=== PATIENT | female | born 1975 | race Caucasian/White ===

== ENCOUNTER → 2021-03-19 | Outpatient (CLI) | payer OTHER ==
[~2021-03-19] MED LIST: DESV100T PO; DEXT20TA2 PO; ESTR2TAB3 PO; LEVO112T2 PO; OXYC1TAB19 PO; TRAZ-123 PO
--- NOTE | 2021-03-19 12:42 | PDOC1 ---
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 Patient rates her disability rating 0-10 10 being the worst is a 7 with family responsibilities recreation 8 with social activity 9 with occupation 5 with sexual behavior 9 with life support activities and 0 with self-care activities patient is been taking oxycodone which is helpful but is beginning to not last as long as previously patient has had no other specific treatments for the abdominal pain at this time other than gastroenterology work-up and is pending a colonoscopy at time of this dictation. Patient had multiple CT scans films of the abdomen pelvis and we reviewed those with her today as well showing normal CT examinations of the abdomen pelvis except for surgical changes as noted. PAST MEDICAL HISTORY: PMH: Hyperglycemia, pancreatitis, hypotension, depression PREVIOUS SURGERIES: Past Surgical Hx: Hysterectomy, gastric bypass, gastrectomy, cholecystectomy, appendectomy, ventral hernia repair x13 with scar tissue excision CURRENT MEDICATIONS: Current Meds: Active Scripts Medications Dose Route/Sig Max Daily Dose Days Date Category Trazodone Hcl 100 Mg Tablet 100 Mg PO HS 03/19/21 Reported Estradiol 2 Mg Tablet 1 Tab PO DAILY 03/19/21 Reported Percocet 7.5-325 Mg Tablet (Oxycodone/Acetaminophen) 1 Each Tablet 1 Tab PO QIDPRN PRN MDD 4 Tablet(s) 5 03/19/21 Reported Pristiq Er (Desvenlafaxine Succinate) 100 Mg Tab.er.24h 1 Tab PO DAILY 03/19/21 Reported Synthroid (Levothyroxine Sodium) 112 Mcg Tablet 1 Tab PO DAILY 03/19/21 Reported Adderall 20 Mg Tablet (Dextroamphetamine/Amphetamine) 20 Mg Tablet 1 Tab PO BID MDD 2 Tablet(s) 5 03/19/21 Reported ALLERGIES; Allergies: Coded Allergies: pregabalin (Verified Allergy, Intermediate, Swelling, 03/19/21) FAMILY HISTORY: Family Hx: Diabetes, multiple cancers SOCIAL HISTORY: Social Hx: Patient drinks alcohol very rarely does not smoke says any illegal illicit or recreational drugs is lives with her spouse lives locally in [facility], patient is currently on disability secondary to her pain situation. REVIEW OF SYSTEMS: ROS: Positive for those items mentioned in history of present illness, all systems are reviewed, otherwise negative ,and are complete full and well-documented on patient's chart. PHYSICAL EXAM: VS: Blood pressure is 135/93 pulse 90 respirations 18 temperature 98.6 F height 5 feet 4 inches weight 131 pounds PE: PHYSICAL EXAMINATION: GENERAL: The patient is awake, alert, oriented, appropriate, very pleasant in demeanor HEENT: Shows normocephalic, atraumatic. Extraocular movements are intact and symmetrical. Oral cavity: Mucous membranes moist and pink. Dentition is intact. NECK: Shows anterior throat supple without palpable lymphadenopathy noted. Swallow reflex symmetrical. CHEST: Shows normal on inspection. Breath sounds are clear bilaterally but distant but no rales or rhonchi. HEART: Shows S1, S2 clear. No murmurs auscultated. ABDOMEN: Soft, nontender, nondistended. No palpable organomegaly is noted. No rebound or guarding demonstrated. Well-healed midline surgical scars noted. Palpation shows some significant tenderness in the left upper quadrant but without palpable masses without radiation also some mild tenderness with palpation in the right upper quadrant and also in the middle epigastric distribution of the superior abdominal wall as well. BACK: Shows spine grossly in the midline. Normal-appearing cervical lordotic curvature, and thoracic kyphosis. SKIN: Shows warm and dry, good turgor. No edema. No sores, rashes or bruising throughout. IMPRESSION: Impression: 45-year-old female with long history bilateral upper abdominal pain status post multiple abdominal wall surgeries. CT scan abdomen pelvis as noted Plan: Options were discussed with the patient including conservative therapies as well as interventional techniques that she would like to pursue eventual techniques. We discussed bilateral TAP block, using description as well as anatomical models to describe the procedure. Patient is interested would like to proceed. We will wait for preauthorization with patient's insurance provider once obtained we will have patient return for bilateral TAP blocks, bilateral upper quadrants. PRAMOD LOZANO MD Mar 19, 2021 12:42
== END | disposition home or self-care (01) ==
LOC: PNCL 11:33
PROVIDERS: ATTEND Anesthesiology
DX: R10.9 Unspecified abdominal pain (principal); R73.9 Hyperglycemia, unspecified; F32.9 Major depressive disorder, single episode, unspecified; Z79.899 Other long term (current) drug therapy; Z88.8 Allergy status to other drugs, medicaments and biological substances; Z90.710 Acquired absence of both cervix and uterus; Z90.49 Acquired absence of other specified parts of digestive tract; Z98.890 Other specified postprocedural states
CPT/HCPCS: G0463

== ENCOUNTER → 2021-04-02 | Outpatient (CLI) | payer OTHER ==
[~2021-04-02] MED LIST changes: +BUPIVACAINE MPF 0.25% 10 ML VIAL. ONE; +methylPREDNISolone ACETATE 80 MG/ML VIAL. ONE
--- NOTE | 2021-04-02 08:58 | PDOC ---
Progress Note - Pain Clinic Date of Service: DOS: DATE: 04/02/21 TIME: 08:53 Diagnosis: Dx: Chronic postoperative pain abdominal wall Abdominal pain epigastric History or Present Illness: HPI: 45-year-old female with history of surgical intervention abdominal wall pain f rom scarring and multiple abdominal procedures with pain bilateral upper abdominal epigastric regions right equal to left patient reports her pain is a 7 on scale 10 is average worst and least is a 7 today patient reports also worse with eating and bloating sensations as well patient reports the pain is alternating with sharp and stabbing off and on in intensity and is present esse ntially at all times. Patient reports awakens her from sleep again worse with eating and within the first 1 to 2 hours following eating. Patient reports radiation to the middle of the abdomen as well as the upper right and left quadrants and some to the lateral aspect of the flank but mostly epigastric and anterior. Physical Exam: VS: Blood pressure 131/87 pulse 85 respirations 16 temperature 97.8 F weight is 131 pounds PE: PHYSICAL EXAMINATION: GENERAL: The patient is awake, alert, oriented, appropriate, very pleasant in demeanor HEENT: Shows normocephalic, atraumatic. Extraocular movements are intact and symmetrical. NECK: Shows anterior throat supple without palpable lymphadenopathy noted. CHEST: Shows normal on inspection. Breath sounds are clear bilaterally. HEART: Shows S1, S2 clear. No murmurs auscultated. ABDOMEN: Soft, nontender, nondistended. No palpable organomegaly is noted. Well-healed surgical scarring is noted, palpation in the upper quadrants bilaterally shows moderate pain with even light to moderate palpation bilaterally without significant radiation. BACK: Shows spine grossly in the midline. Normal-appearing cervical lordotic curvature. There is slightly increased thoracic kyphosis, some minor flattening of the lumbar lordotic curvature. . SKIN: Shows warm and dry, good turgor. No edema. No sores, rashes or bruising throughout. Procedure: Procedure: Options discussed with patient. Patient chart reviews her current medication regimen updated current review of systems updated today as well. We will proceed with bilateral transabdominal plane blocks. Risk were discussed including not limited to bleeding infection possibility of intravascular injection sequelae spread of local anesthetic and numbness side effects of steroid medication as well as poor results regarding pain control. Patient understands wished to proceed. Patient will return to clinic in approximately 3 weeks for follow-up, was counseled as to return appointment, activity level, and side effect to be aware of. Medication Injected: Med Injected: Patient in the supine position under sterile prep and drape patient's abdominal wall was prepped and draped using 25-gauge needle was then injected in the bilateral upper quadrants with good popping sensation as needle was traversing through the myofascial layers with the needle, with negative aspiration prior to injection. A total of 10 cc of 0.25% bupivacaine was administered, 5 cc each side, and total of 80 mg Depo-Medrol, 40 mg each side. Patient tolerated procedure well had no complications. Condition at Discharge: Condition at Discharge: Condition at discharge stable, patient tolerated the procedure well and had no complications. PRAMOD LOZANO MD Apr 02, 2021 08:58
--- NOTE | 2021-04-02 08:58 | PDOC4 ---
Procedure Note: ICD 10 Code: ICD 10 Code: G8 9.18 R10.816 Procedure Note: Patient was consented for bilateral transabdominis plane blocks. Risks are discussed including not limited to bleeding infection possibility of intravascular injection sequelae spread of local anesthetic and numbness side effects steroid medication portals rating pain control. Patient understands wished to proceed. Patient in the supine position under sterile prep and drape patient's abdominal wall was prepped and draped using 25-gauge needle was then injected in the bilateral upper quadrants with good popping sensation as needle was traversing through the myofascial layers with the needle, with negative aspiration prior to injection. A total of 10 cc of 0.25% bupivacaine was administered, 5 cc each side, and total of 80 mg Depo-Medrol, 40 mg each side. Patient tolerated procedure well had no complications. PRAMOD LOZANO MD Apr 02, 2021 08:58
== END | disposition home or self-care (01) ==
LOC: PNCL 08:27
PROVIDERS: ATTEND Anesthesiology
DX: R10.13 Epigastric pain (principal); G89.18 Other acute postprocedural pain; Z79.899 Other long term (current) drug therapy; Z88.8 Allergy status to other drugs, medicaments and biological substances
CPT/HCPCS: 64488; J1040; J3490